=== PATIENT | female | born 1955 | race Two or more races ===

== ENCOUNTER → 2016-10-02 | Outpatient (CLI) | payer MEDICARE, MEDICAID ==
[~2016-10-02] MED LIST: REGADENOSON 0.4 MG/5 ML DISP.SYRIN. IV ONE
--- NOTE | 2016-10-03 12:29 | RAD ---
APPROVED REPORT Nurse/Tech Notes No stress test was performed due to no IV access. Patient was stuck several times and refused any fur ther testing. Imaging Protocol IMAGE PROTOCOL: Rest Tc-99m/stress Tc-99m 1 day Rest: Stress: Viability: Radiopharm.Tc99m Sestamibi Jrqt59kGv Duration 15min. Img Date 10/02/2016 Inj-Img [id number]. Rest Admin Site:IV - Left AntecubitalAdministrator:Joy Whitley, RT (R)(N) Conclusion 1. Due to difficulty with IV access, patient initially only had resting study performed. 2. Resting images do not demonstrate any evidence of perfusion abnormalities. 3. Gating not performed.
== END | disposition home or self-care (01) ==
LOC: NM 13:22
PROVIDERS: ATTEND Nurse Practitioner
DX: R06.00 Dyspnea, unspecified (principal)
CPT/HCPCS: 78451; 96374; A9500

== ENCOUNTER → 2016-10-02 | Outpatient (CLI) | payer MEDICARE, MEDICAID ==
--- NOTE | 2016-10-02 11:15 | CARD ---
APPROVED REPORT EXAM: Two-dimensional and M-mode echocardiogram with Doppler and color Doppler. Other Information Quality : Average Rhythm : NSR INDICATION Dyspnea 2D DIMENSIONS RVDd2.2 (2.9-3.5cm)Left Atrium(2D)3.6 (1.6-4.0cm) IVSd0.9 (0.7-1.1cm)Aortic Root(2D)2.9 (2.0-3.7cm) LVDd4.4 (3.9-5.9cm)LVOT Diameter2.1 (1.8-2.4cm) PWd0.8 (0.7-1.1cm)LVDs2.8 (2.5-4.0cm) FS (%) 36.9 %SV59.8 ml LVEF(%)66.9 (>50%) Aortic Valve AoV Peak Juan.122.8cm/sAoV VTI26.8cm AO Peak GR.6.0mmHgLVOT Peak Juan.86.5cm/s LVOT VTI 23.63cmAO Mean GR.3mmHg IVÁN (VMAX)2.55qx4WSX (VTI)3.17cm2 Mitral Valve MV E Hbuzkznt71.2cm/sMV DECEL [id number] MV A Ywbvwovs54.2cm/sMV E Mean Gr.2mmHg MV PBX75zpK/A Ratio1.2 MV A Bfszmzyw116amWHA (PHT)5.09cm2 TDI E/Lateral E'5.8E/Medial E'14.2 Pulmonary Valve PV Peak Beiuzick211.3cm/sPV Peak Grad.6mmHg RVOT VTI22.4cm Tricuspid Valve TR P. Copapknd896jg/sRAP ZOFEHGUU6ccQd TR Peak Gr.83rxNxHBNU86poYv Pulmonary Vein S1 Tcxjkgiz77.9cm/sD2 Zlddciwm87.3cm/s LEFT VENTRICLE The left ventricle is normal size. There is normal left ventricular wall thickness. Left ventricle sy stolic function is normal. The Ejection Fraction is 65-70%. There is normal LV segmental wall motion. The left ventricular diastolic function and filling is normal for age. RIGHT VENTRICLE The right ventricle is normal size. The right ventricular systolic function is normal. ATRIA The left atrium size is normal. The right atrium size is normal. The interatrial septum is intact wit h no evidence for an atrial septal defect or patent foramen ovale as noted on 2-D or Doppler imaging. AORTIC VALVE The aortic valve is normal in structure and function. The aortic valve is trileaflet. Doppler and Col or Flow revealed no significant aortic regurgitation. There is no significant aortic valvular stenosi s. MITRAL VALVE The mitral valve is normal in structure and function. There is no mitral valve stenosis. Doppler and Color Flow revealed mild mitral regurgitation. TRICUSPID VALVE The tricuspid valve is not well visualized. Doppler and Color Flow revealed trace to mild tricuspid r egurgitation. The PA pressure was estimated at 24 mmHg. There is no tricuspid valve stenosis. PULMONIC VALVE The pulmonic valve is not well visualized. Doppler and Color Flow revealed no pulmonic valvular regur gitation. There is no pulmonic valvular stenosis. GREAT VESSELS The aortic root is normal in size. Normal pulmonary venous flow (Doppler). The IVC is normal in size and collapses >50% with inspiration. PERICARDIAL EFFUSION There is no evidence of significant pericardial effusion. Critical Notification Critical Value: No <Conclusion> Left ventricle systolic function is normal. The Ejection Fraction is 65-70%. There is normal LV segmental wall motion. Mild mitral regurgitation. Trace to mild tricuspid regurgitation. The PA pressure was estimated at 24 mmHg. There is no evidence of significant pericardial effusion.
== END | disposition home or self-care (01) ==
LOC: ECHO 09:04
PROVIDERS: ATTEND Nurse Practitioner
DX: I34.0 Nonrheumatic mitral (valve) insufficiency (principal); I07.1 Rheumatic tricuspid insufficiency
CPT/HCPCS: 93306

== ENCOUNTER → 2016-11-13 | Outpatient (CLI) | payer MEDICARE, MEDICAID ==
--- NOTE | 2016-11-13 15:05 | KCIC ---
Examination: Ultrasound kidneys. HISTORY History of cystic renal disease. COMPARISON 09/30/2015. Findings: The right kidney measures 10.4 x 4.2 x 5.0 centimeters. There is a cystic structure identified in the right kidney measuring 1.6 x 2.4 x 1.7 centimeters. The left kidney measures 11.8 x 10.9 x 5.3 centimeters. Multiple cystic structures identified in the left kidney with the largest measuring 10.8 x 10.9 x 8.7 centimeters. Few of the cysts may contain some septations. Impression. Bilateral renal cysts. The largest cyst on the left measures 10.8 centimeters. Few of the cysts may contain some septations. Electronically signed by: Georgi Mchugh (November 13, 2016 15:04:27)
== END | disposition home or self-care (01) ==
LOC: KCIC US 14:17
PROVIDERS: ATTEND Internal Medicine Nephrology
DX: N28.1 Cyst of kidney, acquired (principal)
CPT/HCPCS: 76770

== ENCOUNTER → 2017-09-26 | Outpatient (CLI) | payer MEDICARE, MEDICAID | END | disposition home or self-care (01) | LOC: KCIC US 13:24 | DX: N28.1 Cyst of kidney, acquired (principal) | CPT/HCPCS: 76770 ==

== ENCOUNTER → 2017-12-26 | Outpatient (CLI) | payer MEDICARE, MEDICAID | END | disposition home or self-care (01) | LOC: KCIC US 13:41 | DX: N28.1 Cyst of kidney, acquired (principal); N32.89 Other specified disorders of bladder | CPT/HCPCS: 76770 ==